=== PATIENT | male | born 1955 | race Caucasian/White ===

== ENCOUNTER 2021-09-18 05:38 | Day surgery (SDC) | payer OTHER ==
[2021-09-12 15:18] LABS: BASOPHILS # (AUTO) 0.1 X10'3 (0-0.2); BASOPHILS % (AUTO) 0.8 % (0-1); EOSINOPHILS # (AUTO) 0.1 X10'3 (0-0.9); EOSINOPHILS % (AUTO) 1.2 % (0-6); LYMPHOCYTES # (AUTO) 2.8 X10'3 (1.1-4.8); MEAN CORPUSCULAR HEMOGLOBIN 32.2 PG (27.0-31.0); MEAN CORPUSCULAR HGB CONC 33.4 g/dL (33.0-36.5); MEAN CORPUSCULAR VOLUME 96.4 FL (78-98); MEAN PLATELET VOLUME 9.1 FL (7.4-10.4); MONOCYTES # (AUTO) 0.7 X10'3 (0-0.9); MONOCYTES % (AUTO) 9.3 % (2-12); NEUTROPHILS # (AUTO) 3.8 X10'3 (1.8-7.7); NEUTROPHILS % (AUTO) 50.7 % (42-75); PRE OP HEMOGLOBIN 13.3 g/dL (14.0-17.9); PRE OP PLATELET COUNT 261 X10'3 (140-440); RED BLOOD COUNT 4.15 X10'6 (4.70-6.10); RED CELL DISTRIBUTION WIDTH 13.8 % (11.5-14.5)
[2021-09-12 15:34] LABS: ALBUMIN 4.1 G/DL (3.4-5.0); ALBUMIN/GLOBULIN RATIO 1.4 (1.1-1.5); ALKALINE PHOSPHATASE 54 IU/L (46-116); BLOOD UREA NITROGEN 16 MG/DL (7-18); BUN/CREATININE RATIO 15.5 (5.4-32.0); CALCIUM 9.4 MG/DL (8.5-10.1); CHLORIDE 103 MMOL/L (99-107); CREATININE 1.03 MG/DL (0.60-1.10); PRE OP ALT 44 U/L (30-65); PRE OP ANION GAP 9 (8-16); PRE OP AST 21 U/L (10-37); PRE OP BILIRUB, TOTAL 0.3 MG/DL (0.0-1.0); PRE OP GLUCOSE 86 MG/DL (70-104); PRE OP POTASSIUM 4.2 MMOL/L (3.4-5.1); PRE OP SODIUM 140 MMOL/L (135-145); TOTAL CARBON DIOXIDE 28.1 MMOL/L (24-32); TOTAL PROTEIN 7.1 G/DL (6.4-8.2); eGFR 72 ML/MIN
[~2021-09-18] VITALS: Ht 175.3 cm; Wt 97.3 kg
[2021-09-18] VITALS (18 sets, daily range): BP systolic 101–146; BP diastolic 49–93
[~2021-09-18 05:38] MED LIST: acetaminophen 325mg tablet PO ONE; cefazolin/dext.iso 2gm/50ml IV ONE; celeCOXIB 100mg capsule PO ONE; famotidine 20mg tablet PO ONE; gabapentin 300mg capsule PO ONE; metoclopramide 5 mg/ml inj IV ONE; oxyCODONE SR 10mg (sust. release) tab -2 tabs (20mg) PO ONE; tranexamic acid inj. 1,000 MG in 0.7% saline 100 ML PMX IV ONE; vancomycin 1,500 MG in NS 300ml IV soln IV ONE
[2021-09-18] MEDS ORDERED: diphenhydrAMINE 25mg capsule PO PRN ×2 (05:55)
[2021-09-18] MEDS ORDERED: bisacodyl 10mg suppository rectal RC PRN (05:55)
[2021-09-18] MEDS ORDERED: ondansetron/PF 4mg/2ml inj IV PRN ×2 (05:55→08:20)
[2021-09-18] MEDS ORDERED: HYDROmorphone inj. 0.5 MG/0.5 ML DISP.SYRIN IV PRN (05:55)
[2021-09-18] MEDS ORDERED: naloxone 0.4 mg/ml inj IV PRN (05:55)
[2021-09-18] MEDS ORDERED: HYDROmorphone 1 mg/ml syringe IV PRN (05:55)
[2021-09-18] MEDS ORDERED: magnesium hydroxide 30ml (MOM) UD suspension PO PRN (05:55)
[2021-09-18] MEDS ORDERED: oxyCODONE/APAP 10/325mg tablet PO PRN ×2 (05:55)
[2021-09-18] MEDS ORDERED: acetaminophen 325mg tablet PO PRN (05:55)
[2021-09-18] MEDS ORDERED: FAMO40TA58 PO (06:17)
[2021-09-18] MEDS ORDERED: FLO0.4C (06:17)
[2021-09-18] MEDS ORDERED: PRAV20TA4 PO (06:17)
--- NOTE | 2021-09-18 06:30 | NUR ---
PT [facility] INTACT, PT UNABLE TO DO NASAL OINTMENT-PHARMACY NEVER RECEIVED ORDER, SHOWERS WERE DONE, DVD WAS VIEWED.
[2021-09-18] MEDS ORDERED: ketorolac trometh. 30mg/ml inj. ONE (06:45)
[2021-09-18] MEDS ORDERED: ROPIVAcaine 0.5% (5mg/ml) 30ml vial ONE ×2 (06:46→08:50)
[2021-09-18] MEDS ORDERED: epiNEPHrine 1 mg/ml inj ONE (06:46)
[2021-09-18] MEDS ORDERED: cloNIDine hcl/PF 100mcg/ml inj ONE (06:46)
[2021-09-18] MEDS: ringers solution, lacted 1,000 ML IV SCH ×2 (06:49→11:33)
[2021-09-18] MEDS ORDERED: MIDAZolam 1 MG/ML 5ML VIAL ONE (07:05)
[2021-09-18] MEDS ORDERED: FENTANYL CITRATE/PF 50 MCG/1 ML VIAL ONE (07:05)
[2021-09-18] MEDS ORDERED: propofol inj 20 ML IV ONE (07:30)
[2021-09-18] MEDS: gabapentin 300mg capsule PO SCH ×4 (08:00→19:22)
[2021-09-18] MEDS ORDERED: vancomycin 1,000mg inj ONE (08:03)
[2021-09-18] MEDS ORDERED: ringers solution, lacted 1,000 ML IV SCH (08:20)
[2021-09-18] MEDS ORDERED: ROPIVAcaine 0.2% (10 MG/5 ML) BOLUS INJECTION ADDCANAL PRN (08:20)
[2021-09-18] MEDS ORDERED: morphine 4 MG/ML inj SYRINge IV PRN (08:20)
[2021-09-18] MEDS ORDERED: morphine 2 MG/ML inj. syringe IV PRN (08:20)
[2021-09-18] MEDS ORDERED: ROPIVAcaine 0.2%/PF PUMP/bolus 545 ML ADDCANAL SCH (08:20)
[2021-09-18] MEDS ORDERED: proCHLORperazine 10 MG/2 ml inj IV PRN (08:20)
[2021-09-18] MEDS ORDERED: meperidine/PF 25mg/ml syringe IV PRN ×3 (08:20)
--- NOTE | 2021-09-18 08:57 | NUR ---
Received from OR via HOSPITAL BED , accompanied by Anesthesiologist DR GOVEA and report given by Anesthesiolgist. PT PRESENTS WITH PIV 20G LEFT HAND, WRAP DRESSING ON RIGHT KNEE WITH POWDER PACK, LIVIA DRESSING AND ON-Q TOSIN PENA. Addendum: 09/18/21 at 1202 by Xiomara Torres RN, RN Amended: Links added.
--- NOTE | 2021-09-18 09:47 | NUR ---
Patient in room ORTHO 4010b. I have received report from Dorene PERKINS and had the opportunity to ask questions and assume patient care. Patient alert and oriented to room, dressing clean dry and intact. ONQ at 2mg, educated on how to use.
--- NOTE | 2021-09-18 09:57 | NUR ---
Report called to receiving nurse ALEXY PERKINS. Transferred via HOSPITAL BED TO ROOM 4010A. PT SENT WITH UPPER AND LOWER DENTURE WITH 1 PT BELONGING BAG. BED IN LOW LOCKED POSITION WITH CALL LIGHT IN REACH, HOOKED UP TO CRE Secure MACHINE Special Issues communicated to receiving nurse. Addendum: 09/18/21 at 1202 by Xiomara Torres RN, RN Amended: Links added.
[2021-09-18] MEDS ORDERED: tranexamic acid 1gm/0.7% sal. 100 ML IV ONE (12:00)
[2021-09-18] MEDS: potassium cl 20mEq in 1/2 NS 1,000 ML IV SCH ×3 (12:04→21:55)
[2021-09-18] MEDS: multivitamins, therapeutics tablet PO SCH (13:34)
[2021-09-18] MEDS: ceFAZolin 2gm in dextrose, iso 50 ML IV SCH (15:41)
--- NOTE | 2021-09-18 18:09 | NUR ---
Problems reprioritized. Patient report given, questions answered & plan of care reviewed with DEN PERKINS.
[2021-09-18] MEDS: ascorbic acid 500mg tablet PO SCH (19:22)
[2021-09-18] MEDS ORDERED: sennosides 8.6mg tablet PO SCH (21:00)
[2021-09-19] MEDS: ceFAZolin 2gm in dextrose, iso 50 ML IV SCH (00:16)
[2021-09-19 02:00] VITALS: BP 148/72
[2021-09-19 06:00] VITALS: BP 138/55
[2021-09-19 06:39] LABS: BASOPHILS % (AUTO) 0.2 % (0-1); EOSINOPHILS # (AUTO) 0.1 X10'3 (0-0.9); EOSINOPHILS % (AUTO) 0.5 % (0-6); HEMATOCRIT 34.7 % (42.0-52.0); HEMOGLOBIN 11.7 g/dl (14.0-17.9); LYMPHOCYTES # (AUTO) 2.5 X10'3 (1.1-4.8); MEAN CORPUSCULAR HEMOGLOBIN 32.3 PG (27.0-31.0); MEAN CORPUSCULAR HGB CONC 33.7 g/dL (33.0-36.5); MEAN PLATELET VOLUME 9.3 FL (7.4-10.4); MONOCYTES # (AUTO) 1.1 X10'3 (0-0.9); MONOCYTES % (AUTO) 9.1 % (2-12); NEUTROPHILS # (AUTO) 8.1 X10'3 (1.8-7.7); NEUTROPHILS % (AUTO) 69.2 % (42-75); PLATELET COUNT 216 X10'3 (140-440); RED BLOOD COUNT 3.62 X10'6 (4.70-6.10); RED CELL DISTRIBUTION WIDTH 13.4 % (11.5-14.5); WHITE BLOOD COUNT 11.7 X10'3 (4.5-11.0)
[2021-09-19 06:50] LABS: ANION GAP 8 (8-16); CHLORIDE 106 MMOL/L (99-107); POTASSIUM 4.2 MMOL/L (3.5-5.1); SODIUM 140 MMOL/L (135-145); TOTAL CARBON DIOXIDE 25.7 MMOL/L (24-32)
[2021-09-19] MEDS: multivitamins, therapeutics tablet PO SCH (07:51)
[2021-09-19] MEDS: gabapentin 300mg capsule PO SCH (07:51)
[2021-09-19] MEDS: ascorbic acid 500mg tablet PO SCH (07:51)
[2021-09-19] MEDS ORDERED: aspirin 325mg tablet PO SCH (08:30)
[2021-09-19] MEDS ORDERED: celeCOXIB 100mg capsule PO SCH (20:00)
== END 2021-09-19 10:55 | disposition home or self-care (01) ==
LOC: PAS 05:38 → ORTHO 4S 06:17 → PAS 09-19 10:55
PROVIDERS: ATTEND Orthopaedic Surgery
DX: M17.12 Unilateral primary osteoarthritis, left knee (principal); E66.9 Obesity, unspecified; Z68.30 Body mass index [BMI] 30.0-30.9, adult; K21.9 Gastro-esophageal reflux disease without esophagitis; N40.0 Benign prostatic hyperplasia without lower urinary tract symptoms; Z98.890 Other specified postprocedural states; G89.18 Other acute postprocedural pain; Z20.822 Contact with and (suspected) exposure to COVID-19; Z87.891 Personal history of nicotine dependence; Z72.89 Other problems related to lifestyle; Z79.899 Other long term (current) drug therapy; Z79.82 Long term (current) use of aspirin
CPT/HCPCS: 27447; 36415; 64448; 64999; 71046; 73560; 76942; 80051; 80053; 82948; 85025; 86885; 86900; 86901; 87081; 97110; 97116; 97161; 97530; C1713; C1776; J0171; J0690; J0735; J1885; J2250; J2405; J2704; J2765; J2795; J3010; J3370; J3480; J3490; J7030; J7040; J7120; U0003; U0005; Z7506; Z7508; Z7512; A4215; A7000; G0378